=== PATIENT | male | born 1970 | race Caucasian/White ===

== ENCOUNTER 2020-05-03 13:58 | Outpatient (CLI) | payer BC ==
[~2020-05-03] VITALS: Ht 182.9 cm; Wt 106.8 kg
[~2020-05-03 13:58] MED LIST: CARDI-OMEGA1000 MG; LEVAQUIN 5500 MG/TA1 PO; OMNIPRED 10 ML10 ML; PERCOCET 325 MG1 TA2 PO; PHENERGAN 25 TA25 MG PO; RHINOCORT0.032 MG/1 NS; ULTRAM 50MG TAB50 MG PO; ZOFRAN ODT4 MG PO; ZYRTEC 10MG10 MG PO
[2020-05-03 14:23] VITALS: BP 133/72; PULSE 89; TEMP 98.8
[2020-05-03] MEDS ORDERED: TYLENOL 500MG500 MG PO (14:38)
[2020-05-03] MEDS ORDERED: DULERA1 AR1 IH (14:39)
[2020-05-03] MEDS ORDERED: PULMICORT0.5 MG/2 M IH (14:39)
[2020-05-03] MEDS ORDERED: DEPO-TESTOS100 MG/ML IM (14:41)
--- NOTE | 2020-05-03 16:46 | NUR ---
Vitals monitor every 30 minutes during infuion and monitored for 1 hour post infusion.Pt escorted out via ambulatory by staff.
== END 2020-05-03 16:46 | disposition home health service (06) ==
LOC: EUO 13:58
DX: U07.1 COVID-19 (principal)
CPT/HCPCS: J7050

== ENCOUNTER → 2021-10-13 | Outpatient (CLI) | payer BC ==
[~2021-10-13] MED LIST changes: +DEPO-TESTOS100 MG/ML IM; +DULERA1 AR1 IH; +PULMICORT0.5 MG/2 M IH; +TYLENOL 500MG500 MG PO
== END ==
LOC: COL.RAD 13:58
DX: R07.89 Other chest pain (principal)
CPT/HCPCS: Q9967

== ENCOUNTER → 2021-10-17 | Outpatient (CLI) | payer BC | LOC: COL.VAS 08:00 | DX: R07.89 Other chest pain (principal) ==